=== PATIENT | female | born 2000 | race Caucasian/White ===

== ENCOUNTER 2022-05-27 18:25 | Outpatient (CLI) | payer MEDICAID, SELFPAY ==
--- NOTE | 2022-05-27 | DI.RAD_ITS ---
Exam(s) XR TIB/FIB RT EXAM: XR TIB/FIB RT CLINICAL HISTORY: PAIN IN RIGHT LOWER LEG. TECHNIQUE: 2D digital imaging was performed. COMPARISON: No exams were available for comparison FINDINGS: Two views: AP and lateral views reveal no evidence of fracture nor dislocation. Bone density normal. No osseou s lesions. No radiopaque foreign body. IMPRESSION: No significant osseous findings. DATA REPOSITORY: RADIATION DOSE DELIVERED:
--- NOTE | 2022-05-27 18:55 | DI.VRAD_ITS ---
PROCEDURE INFORMATION: Exam: XR Right Tibia and Fibula Exam date and time: 05/27/2022 6:37 PM Age: 21 years old Clinical indication: Other: Pain lower leg TECHNIQUE: Imaging protocol: Radiologic exam of the right tibia and fibula. Views: 2 views. COMPARISON: No relevant prior studies available. FINDINGS: Bones/joints: No fracture. Normal alignment is maintained at the knee and ankle. The ankle mortise joint is well maintained. Knee joint spaces are grossly well-maintained. Proximal and distal tibiofibular alignment is normal. There are 2 small probable bone islands projecting over the medial proximal tibial metaphysis on the frontal view measuring 6 mm and 4 mm. No gross joint effusion. Soft tissues: No periostitis or osteolysis. No gross soft tissue abnormalities. No radiopaque foreign bodies. IMPRESSION: No acute findings. Dictated and Authenticated by: Issac Mcclendon MD. Ordering:VIKTORIA Florian MD
== END 2022-05-27 18:45 ==
PROVIDERS: Visit Provider Physician Assistant Medical
DX: M79.661 Pain in right lower leg (principal)
CPT/HCPCS: 73590

== ENCOUNTER 2023-09-12 18:22 | Emergency (ER) | payer MEDICAID, SELFPAY ==
[2023-09-12 18:33] VITALS: BP 119/77; PULSE 80; RESP 14; TEMP 36.8; O2SAT 100
--- NOTE | 2023-09-12 18:45 | DI.RAD_ITS ---
Exam(s) XR ANKLE LT COMPLETE EXAM: XR ANKLE LT COMPLETE CLINICAL HISTORY: LEFT ANKLE PAIN. TECHNIQUE: 2D digital imaging was performed. COMPARISON: No exams were available for comparison FINDINGS: 3 views No evidence of acute fracture or widening of the ankle mortise. Talar dome appears unremarkable. No prominent soft tissue swelling. No osseous lesions. IMPRESSION: No acute fractures evident DATA REPOSITORY: RADIATION DOSE DELIVERED:
--- NOTE | 2023-09-12 18:50 | W.ED.GENAD ---
Discharge Plan Disposition Patient Disposition: Home Condition: Stable Discharge Details Clinical Impression: Sprain of left ankle Primary Care Provider: Unknown,Unknown ED Provider: Mike Flower Home Meds and New Rx's Prescriptions: No Action lamotrigine [Lamictal] 100 mg tablet 100 mg PO DAILY methylphenidate HCl [Ritalin] 20 mg tablet 20 mg PO DAILY Discharge Instructions Instructions: Ankle Sprain ED Additional Instructions: You were seen in the emergency department for the sprain of your left ankle, there is no fracture seen on my read of your x-ray, your official radiology read is not back yet but there is certainly not an unstable or displaced fracture, I am giving you a walking boot to help relieve pain by immobilizing the ankle, please rest, ice, compress and elevate the ankle often over the next few days. Use the crutches for partial weightbearing as tolerated. Please use therapeutic dosing of Tylenol (acetamenophen) & Advil (ibuprofen) in an alternating fashion as follows: Take 1000mg of Tylenol every 6 hours without missing doses- that is 4 times per day. [place] in between the Tylenol dosings, take 400-600mg of Advil also on a 6 hour schedule, that is also 4 times per day. The daily maximum dosing of Tylenol is 4000mg, and the daily maximum dosing of Advil is 2400mg. This is safe to do for weeks. Please note that some common cold medications & prescription pain medications may contain acetamenophen and you need to read OTC drug labels and factor that in to maximum daily dosings. Follow-up with orthopedics for any persistent pain past 2 weeks, return to ER for signs of neurovascular compromise distal to the injury. Referrals: [facility] [Provider Group] Discharge Data Discharge Date/Time-TO BE ENTERED AT DEPARTURE: 09/12/23 19:55 HPI General Date/Time Provider Initiated Documentation: 09/12/23 18:32. HPI Narrative: 22 year-old female presents to ED today by POV/wheelchair from parking lot with a chief complaint of L lateral foot injury- jammed on a waterslide with onset about 2 hours ago. States not able to weight-bear, R-leg dominant. Quality described as lateral foot pain, pain with dorsi/plantarflexion, mild dizziness due to pain when she tried to ambulate, no radiation to complete numbness, deformity, gross swelling, bruising, proximal calf pain/swelling. Severity is described as moderate. Palliating factors include ice pack with some relief. Provoking factors include nothing specific. Patient not anticoagulated. Related Data Home Medications ?Medication ?Instructions ?Recorded ?Confirmed lamotrigine 100 mg tablet 100 mg PO DAILY 09/12/23 09/12/23 (Lamictal) methylphenidate HCl 20 mg tablet 20 mg PO DAILY 09/12/23 09/12/23 (Ritalin) Allergies Allergy/AdvReac Type Severity Reaction Status Date / Time amoxicillin Allergy Severe Anaphylaxis Verified 09/12/23 19:20 Penicillins Allergy Severe Anaphylaxis Verified 09/12/23 19:20 cyclobenzaprine (From AdvReac Unknown Verified 09/12/23 19:20 Flexeril) General Stated Complaint: Orthopedic MOHSEN: 4 Review of Systems All systems reviewed & are unremarkable except as noted in HPI and below Exam Narrative Exam Narrative: GENERAL APPEARANCE: Well-nourished, non-toxic, awake and alert, atraumatic, no acute distress. SKIN: Warm, pink, dry, intact, without rashes/lesions/ulcerations. HEAD: Normocephalic, atraumatic, normal hair distribution for gender/age. EYES: Normal conjunctiva, no exudates on lids/lashes. ENT: Nares patent, no circumoral cyanosis, no facial swelling NECK: Supple, trachea midline, painless cervical ROM. LUNGS/CHEST: Non-labored respirations, normal A/P diameter, symmetrical expansion, no chest wall deformity HEART (CV/PV): Regular rate, no peripheral edema, no JVD. ABDOMEN: Soft, non-distended, no guarding. MSK: Normal ROM, no swelling/deformity to bilateral UEs or LEs, moving all extremities without weakness, no cyanosis, spine midline without tenderness, normal curvature. L lateral foot tenderness without crepitus, L dorsalis pedis pulse 2+, no ecchymosis, no swelling or deformity, no unilateral calf swelling, no fibular head tenderness. NEURO: Mental Status AAOx4 - alert to person, place, time, events No facial droop, no forehead involvement. Motor: No focal weakness - strength 5/5 in bilateral UEs and LEs, proximal and distal, symmetric. Sensory: sensation intact to light touch globally. Gait NT. PSYCH: euthymic, cooperative, pleasant, appropriate speech Course Vital Signs Vital signs: Vital Signs Temperature 36.8 C 09/12/23 18:33 Pulse 80 09/12/23 18:33 Respiratory Rate 14 09/12/23 18:33 Blood Pressure 119/77 09/12/23 18:33 Pulse Oximetry 100 09/12/23 18:33 Temperature 36.8 C 09/12/23 18:33 Temperature Source Skin 09/12/23 18:33 Pulse 80 09/12/23 18:33 Respiratory Rate 14 09/12/23 18:33 Blood Pressure 119/77 09/12/23 18:33 Blood Pressure Position Sitting 09/12/23 18:33 Pulse Oximetry 100 09/12/23 18:33 Oxygen Delivery Method Room Air 09/12/23 18:33 Oxygen Flow Rate 0 09/12/23 18:33 Pain Level 4 09/12/23 18:33 Medical Decision Making This dictation utilizes [id number] dictation software and may contain unedited grammatical errors. 22 year-old female presents to ED today by POV/wheelchair from parking lot with a chief complaint of L lateral ankle- jammed on a waterslide with onset about 2 hours ago. States not able to weight-bear, R-leg dominant. Quality described as lateral foot pain, pain with dorsi/plantarflexion, mild dizziness due to pain when she tried to ambulate, no radiation to complete numbness, deformity, gross swelling, bruising, proximal calf pain/swelling. Severity is described as moderate. Palliating factors include ice pack with some relief. Provoking factors include nothing specific. Patients' medical history: noncontributory. Family and social history: noncontributory. Pertinent exam findings / vital signs include L lateral foot tenderness without crepitus, L dorsalis pedis pulse 2+, no ecchymosis, no swelling or deformity, no unilateral calf swelling, no fibular head tenderness. Differential / pathologies of concern include Fracture, Sprain/Strain, Contusion. Diagnostic studies of: -XR L Ankle - no fracture seen by provider read. Interventions of: -short walking boot, crutches, hydrocodone to-go ED Course/Assessment/Plan: 22-year-old female seen put her left foot out to stop her self, left ankle pain without fracture seen on x-ray by my read, discharge prior to the rad read, given splint and crutches and medications to go, recommend follow-up with orthopedics if pain persist past 2 weeks, strict return criteria for neurovascular compromise Findings not consistent with fracture or neurovascular compromise. Disposition of Sprain of Left Ankle. Patient verbalized understanding of the plan and return to ED criteria and engaged in shared decision making. Medical Records Medical records reviewed: Yes I reviewed the patient's medical records. Imaging Data Radiologic Study: Attestation: I personally reviewed and interpreted this imaging study as follows: Imaging: X-Ray Radiologist's impression: Exam: XR Left Ankle Exam date and time: 09/12/2023 6:55 PM Age: 22 years old Clinical indication: Other: Lt ankle twist, pain TECHNIQUE: Imaging protocol: Radiologic exam of the left ankle. Views: 3 or more views. COMPARISON: No relevant prior studies available. FINDINGS: Bones/joints: Normal. Soft tissues: Normal. IMPRESSION: No evidence for fracture. Dictated and Authenticated by: Racquel Schuster MD. Quality:SDOH Health Related Social Needs: No Data to Display PFSH All Active Problems (Updated 09/12/23 @ 19:46 by LUKE Conde) Sprain of left ankle (Acute) Social History Smoking/Tobacco Use Status: Never Smoking risk assessment performed?: Yes Alcohol Intake: never Drug use: Never Substance use type: does not use
[2023-09-12 19:55] VITALS: BP 120/72; PULSE 76; RESP 14; O2SAT 100
--- NOTE | 2023-09-12 20:00 | DI.VRAD_ITS ---
PROCEDURE INFORMATION: Exam: XR Left Ankle Exam date and time: 09/12/2023 6:55 PM Age: 22 years old Clinical indication: Other: Lt ankle twist, pain TECHNIQUE: Imaging protocol: Radiologic exam of the left ankle. Views: 3 or more views. COMPARISON: No relevant prior studies available. FINDINGS: Bones/joints: Normal. Soft tissues: Normal. IMPRESSION: No evidence for fracture. Dictated and Authenticated by: Racquel Schuster MD. Ordering:[facility] Roberto Moreno MD
--- NOTE | 2023-09-13 08:43 | NUR.NOTE ---
Accessed Pt chart to Obtain the name of the prescribing provider for the [facility] paperwork.
== END 2023-09-12 19:55 | disposition home or self-care (01) ==
PROVIDERS: Emergency Provider Physician Assistant
DX: S93.402A Sprain of unspecified ligament of left ankle, initial encounter (principal); W22.8XXA Striking against or struck by other objects, initial encounter; Y93.11 Activity, swimming; Y92.34 Swimming pool (public) as the place of occurrence of the external cause
CPT/HCPCS: 99283; 73610

== ENCOUNTER 2024-06-09 17:44 | Emergency (ER) | payer MEDICAID, SELFPAY ==
[2024-06-09 18:10] VITALS: BP 129/73; PULSE 73; RESP 14; TEMP 36.6
--- NOTE | 2024-06-09 18:30 | DI.RAD_ITS ---
Exam(s) XR SHOULDER RT COMPLETE 2+V EXAM: XR SHOULDER RT COMPLETE 2+V CLINICAL HISTORY: right shoulder pain. TECHNIQUE: 2D digital imaging was performed. COMPARISON: No exams were available for comparison FINDINGS: Five views No evidence of fracture or dislocation nor abnormal soft tissue calcifications. Subacromial space un remarkable. Glenohumeral and AC joint unremarkable. Clavicle is intact. Adjacent ribs intact IMPRESSION: No acute osseous findings in the right shoulder. DATA REPOSITORY: RADIATION DOSE DELIVERED:
--- NOTE | 2024-06-09 19:23 | DI.VRAD_ITS ---
PROCEDURE INFORMATION: Exam: XR Right Shoulder Exam date and time: 06/09/2024 18:57 Age: 23 years old Clinical indication: Pain; Shoulder; Right TECHNIQUE: Imaging protocol: Radiologic exam of the right shoulder. Views: 2 or more views. COMPARISON: No relevant prior studies available. FINDINGS: Bones/joints: No acute fracture or subluxation. No significant degenerative changes are seen. Soft tissues: Normal. IMPRESSION: No acute bony pathology. Dictated and Authenticated by: Amber Shelton MD. Orderin Vani Moura MD
[2024-06-09] MEDS: MORPHine IR 15 MG TAB PO (19:51)
[2024-06-09 19:53] VITALS: BP 119/76; PULSE 61; RESP 16; TEMP 36.8; O2SAT 98
--- NOTE | 2024-06-09 23:01 | ED.GENADUL_ITS ---
Discharge Plan Disposition Patient Disposition: Home Condition: Stable Discharge Details Clinical Impression: Injury of shoulder Primary Care Provider: Unknown,Unknown ED Provider: Zeny Ludwig Home Meds and New Rx's Prescriptions: Continued lamotrigine [Lamictal] 100 mg tablet 100 mg PO DAILY methylphenidate HCl [Ritalin] 20 mg tablet 20 mg PO DAILY Discharge Instructions Additional Instructions: You have been supplied with a sling, continue to range your shoulder so it does not become frozen On supplying a referral to physical therapy, please follow-up Take ibuprofen per package instructions and Tylenol per package instructions Please be reevaluated should you have new or worsening complaints Stand Alone Forms: Physical Therapy Referral HPI General Date/Time Provider Initiated Documentation: 06/09/24 18:20 . HPI Narrative: 23-year-old female with right shoulder injury x2. Injured shoulder 1 week ago, evaluated at urgent care, given sling, referred to PT (appointment in 1 month). [place] better, discarded sling. Today, injured shoulder in car door. Worsening pain with tingling and numbness in hand since event. Took 1500 mg Tylenol, applied Lidoderm patch. No additional injuries or possibility of . Related Data Home Medications ?Medication ?Instructions ?Recorded ?Confirmed lamotrigine 100 mg tablet 100 mg PO DAILY 09/12/23 06/09/24 (Lamictal) methylphenidate HCl 20 mg tablet 20 mg PO DAILY 09/12/23 06/09/24 (Ritalin) Allergies Allergy/AdvReac Type Severity Reaction Status Date / Time amoxicillin Allergy Severe Anaphylaxis Verified 06/09/24 18:15 Penicillins Allergy Severe Anaphylaxis Verified 06/09/24 18:15 cyclobenzaprine (From AdvReac Unknown Verified 06/09/24 18:15 Flexeril) General Stated Complaint: Orthopedic MOHSEN: 3 Exam Narrative Exam Narrative: General Appearance: Alert and oriented. Vital signs: Within normal limits. HEENT: Within normal limits. Respiratory: Within normal limits. Back, Musculoskeletal: Decreased ROM in right shoulder. Extremities: Neurovascularly intact. No elbow tenderness. No visible trauma. Skin: Warm and dry, no rash. Neurological: Normal. Course Vital Signs Vital signs: Vital Signs Temperature 36.6 C 06/09/24 18:10 Pulse 73 06/09/24 18:10 Respiratory Rate 14 06/09/24 18:10 Blood Pressure 129/73 06/09/24 18:10 Temperature 36.8 C 06/09/24 19:53 Temperature Source Tympanic 06/09/24 19:53 Pulse 61 06/09/24 19:53 Respiratory Rate 16 06/09/24 19:53 Blood Pressure 119/76 06/09/24 19:53 Pulse Oximetry 98 06/09/24 19:53 Oxygen Delivery Method Room Air 06/09/24 19:53 Oxygen Flow Rate 0 06/09/24 19:53 Pain Level 5 06/09/24 20:01 Medical Decision Making X-ray of right shoulder: no acute fracture or dislocation. Radiology interpretation of my review Initial Assessment: 23-year-old female with right shoulder injury, worsening pain, tingling, and numbness in hand after injuring shoulder in car door. ED Course: - Ordered x-ray: no acute fracture or dislocation. - Provided sling for support. - Discussed risk of frozen shoulder. - Referred to PT. - Single dose of opiate pain medication given. - Advised to continue ibuprofen and Tylenol as per package instructions. - Reviewed return precautions, patient understood. Final Assessment: Right shoulder injury with worsening symptoms after recent trauma. X-ray negative for acute fracture or dislocation. Treatment included sling, opiate pain medication, and referral to PT. Clinical Impression: - Right shoulder injury Disposition: - Discharge - Follow-Up: PT appointment or referral provided. MDM Components Evaluation: - Number of Differential Diagnoses or Management Options: Right shoulder injury - Amount and Complexity of Data Reviewed: X-ray - Risk of Complication and Morbidity or Mortality: Risk of frozen shoulder discussed. Quality:SDTN Health Related Social Needs: No Data to Display PFSH All Active Problems (Updated 06/09/24 @ 19:41 by LUKE [place]) Injury of shoulder (Acute) Social History Smoking/Tobacco Use Status: Never Smoking risk assessment performed?: Yes Alcohol Intake: never Drug use: Never Substance use type: does not use
--- NOTE | 2024-06-10 08:27 | NUR.NOTE ---
Access chart to get the discharge diagnosis. and print the demographic sheet for [facility] billing requisition. Nursing Note:
== END 2024-06-09 23:33 | disposition home or self-care (01) ==
PROVIDERS: Emergency Provider Physician Assistant
DX: M25.511 Pain in right shoulder (principal); S49.81XA Other specified injuries of right shoulder and upper arm, initial encounter; W23.0XXA Caught, crushed, jammed, or pinched between moving objects, initial encounter
CPT/HCPCS: 99283; 73030